=== PATIENT | female | born 1980 | race Caucasian/White ===

== ENCOUNTER 2016-11-20 11:01 | Emergency (ER) | payer MEDICAID ==
[~2016-11-20] VITALS: Wt 49.5 kg
[~2016-11-20 11:01] MED LIST: IBUP-1542 PO; MECL25TA2 PO
[2016-11-20] MEDS ORDERED: AZIT250T94 PO (13:49)
[2016-11-20] MEDS ORDERED: CETI10CA PO (13:49)
[2016-11-20] MEDS ORDERED: FLUT9.9S NASAL (13:49)
--- NOTE | 2016-11-20 13:55 | ERD ---
ER Documentation Chief Complaint Date/Time DATE: 11/20/16 TIME: 13:51 Chief Complaint COUGH AND CONGESTION FOR 2 WKS. SORE THROAT. NOT BETTER WITH MEDS HPI This is a 36-year-old female who presents to the emergency department today complaining of cough, congestion and sore throat for the past 2 weeks. Patient has tried Robitussin and promethazine that she got from her primary care doctor. States cough is worse at night and that is a dry cough. Denies any fevers or chills, chest pain or shortness of breath. ROS All systems reviewed and are negative except as per history of present illness. Medications Home Meds Active Scripts Azithromycin* (Zithromax*) 250 Mg Tablet, 250 MG PO .ZPACK DIRECTED, #6 TAB TAKE 500 MG (2 TABS) THE FIRST DAY THEN 250 MG (1 TAB) DAYS 2-5 Prov:JUANY HACKETT PA-C 11/20/16 Fluticasone Propionate (Flonase Allergy Relief) 9.9 Ml [place].susp, 2 SPRAY NASAL DAILY, #1 BOTTLE TO EACH NOSTRIL Prov:JUANY HACKETT PA-C 11/20/16 Cetirizine Hcl* (Zyrtec*) 10 Mg Capsule, 10 MG PO DAILY, #14 TAB.CHEW Prov:JUANY HACKETT PA-C 11/20/16 Ibuprofen* (Motrin*) 600 Mg Tab, 600 MG PO Q6H Y for PAIN AND OR ELEVATED TEMP, #30 TAB Prov:MARIA C SALES MD 10/17/15 Meclizine Hcl* (Antivert*) 25 Mg Tablet, 25 MG PO Q6H Y for dizziness, #20 TAB Prov:MARIA C SALES MD 10/17/15 Reported Medications [None] No Conflict Check 01/23/12 Allergies Allergies: Coded Allergies: No Known Drug Allergy (Verified Allergy, Unknown, 09/16/13) PMhx/Soc Medical and Surgical Hx: pt denies Medical Hx Anesthesia Reaction: No Hx Neurological Disorder: No Hx Respiratory Disorders: No Hx Cardiac Disorders: No Hx Psychiatric Problems: No Hx Miscellaneous Medical Probl: No Hx Alcohol Use: No Hx Substance Use: No Hx Tobacco Use: No Physical Exam Vitals Vital Signs Date Time Temp Pulse Resp B/P Pulse Ox O2 Delivery O2 Flow Rate FiO2 3/15/17 11:03 98.8 98 20 125/80 98 Physical Exam Const: No acute distress Head: Atraumatic Eyes: Normal Conjunctiva ENT: Ears TMs normal. Nose no drainage. Throat no erythema no exudate. Neck: Full range of motion..~ No meningismus. Resp: Clear to auscultation bilaterally. No absent breath sounds. No wheezing Cardio: Regular rate and rhythm, no murmurs Abd: Soft, non tender, non distended. Normal bowel sounds Skin: No petechiae or rashes Neur: Awake and alert Psych: Normal Mood and Affect Procedures/MDM This a 36-year-old female who presents the emergency department today with cough , congestion and sore throat for the past 2 weeks that has not improved with ryos-wpt-fuksdfa Robitussin and promethazine that she was prescribed from her primary care physician. Patient is afebrile here in the emergency department. Her respirations are 20 her oxygen saturation is 98%. She is not tachycardic. I do not feel the patient requires a chest x-ray at this time. I will give the patient a prescription for azithromycin to treat possible bronchitis. Low suspicion for PE, pneumonia, abscess, pneumothorax. Other differentials to consider are viral URI, allergic rhinitis I have low suspicion for strep pharyngitis, peritonsillar abscess, retropharyngeal abscess, otitis media, PNA, sinusitis, abscess, meningitis, sepsis, or other acute infectious bacterial process. Patient will also be given a prescription for Zyrtec and Flonase. She may continue taking either the promethazine or Robitussin as needed. At this time the patient is stable for discharge and outpatient management. They should follow up with their PCP in the next 1-2. They may return to the emergency department sooner if symptoms persist or worsen. Patient understood and agreed with the plan. Departure Diagnosis: Primary Impression: URI (upper respiratory infection) URI type: unspecified URI Qualified Code: J06.9 - Upper respiratory tract infection, unspecified type Condition: Fair Patient Instructions: Preventing Common Respiratory Infections Referrals: [facility] Usted se weathers hecho un examen mdico de control que le indica que no est en danisha condicin que requiera tratamiento urgente en el Departamento de Emergencia. Un estudio ms profundo y el tratamiento de zuniga condicin pueden esperar sin ningn riesgo hasta que usted sea atendida/o en el consultorio de zuniga mdico o danisha cl flo. Es responsabilidad suya arreglar danisha mary jo para el seguimiento del nnacy. MANEJO DE CONDICIONES NO URGENTES EN EL FUTURO 1) Si usted tiene un mdico de atencin primaria: Usted debera llamar a zuniga mdico de atencin primaria antes de venir al departamento de emergencia. Despus de las horas de consultorio, zuniga doctor o zuniga asociado/a est disponible por telfono. El mdico o enfermero de hattie en el servicio telefnico puede asesorarle por triston medio para atender el problema, o nancy contrario se puede programar danisha mary jo. 2) Si usted no tiene un mdico de atencin primaria: Llame al mdico o clnica de referencia que aparece abajo maine las horas de consultorio para hacer danisha mary jo para que le vean. CLINICAS: [place] [id number] [phone] [facility] [phone] [facility]. [facility] [phone] [address] [facility]. [place] [phone] [facility]. [place] [id number] [phone] [facility]. [phone] [address] Additional Instructions: Llame al doctor MAANA y keturah danisha MARY JO PARA DENTRO DE 1-2 NAVARRO.Dgale a la secretaria que nosotros le instruimos hacer esta mary jo.Avise o llame si zuniga condicin se empeora antes de la mary jo. Regresa aqui si peor o no mejor. Take all medications as prescribed Continue taking either the promethazine or tussin JUANY HACKETT PA-C Nov 20, 2016 13:55
== END 2016-11-20 13:57 | disposition home or self-care (01) ==
LOC: FTE 11:01
DX: J06.9 Acute upper respiratory infection, unspecified (principal)
CPT/HCPCS: 99283

== ENCOUNTER 2017-07-30 15:26 | Emergency (ER) | payer MEDICAID ==
[~2017-07-30] VITALS: Ht 162.6 cm; Wt 52.4 kg
[~2017-07-30 15:26] MED LIST changes: +AZIT250T94 PO; +CETI10CA PO; +FLUT9.9S NASAL
[2017-07-30 15:39] VITALS: Ht 162.6 cm; Wt 52.4 kg
[2017-07-30 16:40] LABS: URINE BLOOD (Dip) POC 2+ (NEGATIVE)
[2017-07-30] MEDS ORDERED: NITR-58 PO (16:54)
--- NOTE | 2017-07-30 17:20 | ERD ---
ER Documentation Chief Complaint Chief Complaint dysuria x 1 month HPI 37-year-old female complaining of dysuria 1 month. Patient denies vaginal discharge or new sexual partners. Patient states she was given Pyridium at her PMDs but no antibiotics. Patient describes a burning type sensation with occasional hematuria during urination. Back pain and no fevers. Denies medical problems. NKDA. Surgical history: 2 C-sections. Social history: Denies ROS All systems reviewed and are negative except as per history of present illness. Medications Home Meds Active Scripts Nitrofurantoin Monohyd Macrocr* (Macrobid*) 100 Mg Capsr, 100 MG PO BID for 14 Days, CAP Prov:CAROL JUAN PA-C 07/30/17 Azithromycin* (Zithromax*) 250 Mg Tablet, 250 MG PO .ZPACK DIRECTED, #6 TAB TAKE 500 MG (2 TABS) THE FIRST DAY THEN 250 MG (1 TAB) DAYS 2-5 Prov:JUANY HACKETT PA-C 11/20/16 Fluticasone Propionate (Flonase Allergy Relief) 9.9 Ml [place].susp, 2 SPRAY NASAL DAILY, #1 BOTTLE TO EACH NOSTRIL Prov:JUANY HACKETT PA-C 11/20/16 Cetirizine Hcl* (Zyrtec*) 10 Mg Capsule, 10 MG PO DAILY, #14 TAB.CHEW Prov:JUANY HACKETT PA-C 11/20/16 Ibuprofen* (Motrin*) 600 Mg Tab, 600 MG PO Q6H Y for PAIN AND OR ELEVATED TEMP, #30 TAB Prov:MARIA C SALES MD 10/17/15 Meclizine Hcl* (Antivert*) 25 Mg Tablet, 25 MG PO Q6H Y for dizziness, #20 TAB Prov:MARIA C SALES MD 10/17/15 Reported Medications [None] No Conflict Check 01/23/12 Allergies Allergies: Coded Allergies: No Known Drug Allergy (Verified Allergy, Unknown, 09/16/13) PMhx/Soc Anesthesia Reaction: No Hx Neurological Disorder: No Hx Respiratory Disorders: No Hx Cardiac Disorders: No Hx Psychiatric Problems: No Hx Miscellaneous Medical Probl: No Hx Alcohol Use: No Hx Substance Use: No Hx Tobacco Use: No Smoking Status: Never smoker Physical Exam Vitals Vital Signs Date Time Temp Pulse Resp B/P Pulse Ox O2 Delivery O2 Flow Rate FiO2 07/30/17 15:39 99.8 90 18 140/78 97 Physical Exam GENERAL: The patient is well-appearing, well-nourished, in no acute distress CHEST: Clear to auscultation bilaterally. There are no rales, wheezes or rhonchi. HEART: Regular rate and rhythm. No murmurs, clicks, rubs or gallops. No S3 or S4. ABDOMEN:Soft, nontender and nondistended. Good bowel sounds. No rebound or guarding. No gross peritonitis. No gross organomegaly or masses. No Aguila sign or McBurney point tenderness. BACK: No midline or flank tenderness. Results 24 hrs Laboratory Tests Test 07/30/17 16:39 Bedside Urine pH (LAB) 6.5 Bedside Urine Protein (LAB) Negative Bedside Urine Glucose (UA) Negative Bedside Urine Ketones (LAB) Negative Bedside Urine Blood 2+ Bedside Urine Nitrite (LAB) Negative Bedside Urine Leukocyte Esterase (L Trace Procedures/MDM ER course: Urine sent for culture MDM: 37-year-old female complaining of dysuria 1 month. Patient's urine shows possible infection and she has clinically complaints of UTI so I will treat for UTI. A low suspicion for pyelonephritis patient does not have CVA tenderness on exam. Vital signs are stable. Patient is not complaining of vaginal discharge or vaginitis so I have low suspicion for STD or yeast infection at this time. Patient's vital signs are stable patient is nontoxic-appearing. Patient is discharged with antibiotics and recommended to follow-up with primary care within 1-2 days for close evaluation. Patient is told symptoms change or worsen to return the ER. All questions answered at discharge. Departure Diagnosis: Primary Impression: Dysuria Condition: Stable Patient Instructions: Dysuria Referrals: [facility] YOU HAVE RECEIVED A MEDICAL SCREENING EXAM AND THE RESULTS INDICATE THAT YOU DO NOT HAVE A CONDITION THAT REQUIRES URGENT TREATMENT IN THE EMERGENCY DEPARTMENT. FURTHER EVALUATION AND TREATMENT OF YOUR CONDITION CAN WAIT UNTIL YOU ARE SEEN IN YOUR DOCTORS OFFICE WITHIN THE NEXT 1-2 DAYS. IT IS YOUR RESPONSIBILITY TO MAKE AN APPOINTMENT FOR FOLOW-UP CARE. IF YOU HAVE A PRIMARY DOCTOR --you should call your primary doctor and schedule an appointment IF YOU DO NOT HAVE A PRIMARY DOCTOR YOU CAN CALL OUR PHYSICIAN REFERRAL HOTLINE AT IF YOU CAN NOT AFFORD TO SEE A PHYSICIAN YOU CAN CHOSE FROM THE FOLLOWING [facility] [address] [facility] [address] [facility] [address] [facility] [address] [facility]. [facility] [address] [facility]. [facility]. [address] Additional Instructions: FOLLOW UP WITH YOUR PRIMARY CARE PHYSICIAN TOMORROW.Return to this facility if you are not improving as expected. CAROL JUAN PA-C Jul 30, 2017 17:20
== END 2017-07-30 17:10 | disposition home or self-care (01) ==
LOC: FTE 15:26
DX: R30.0 Dysuria (principal)
CPT/HCPCS: 81003; 87086; Z7502; 99283

== ENCOUNTER 2017-12-29 08:44 | Emergency (ER) | END 2017-12-29 12:05 | disposition home or self-care (01) ==

== ENCOUNTER 2018-05-12 08:33 | Emergency (ER) | END 2018-05-12 10:53 | disposition home or self-care (01) ==

== ENCOUNTER 2018-05-20 09:00 | Emergency (ER) | END 2018-05-20 15:09 | disposition home or self-care (01) ==

== ENCOUNTER 2018-11-08 07:32 | Emergency (ER) | payer MEDICAID ==
[~2018-11-08] VITALS: Wt 51.3 kg
[~2018-11-08 07:32] MED LIST changes: +AZIT250T PO; -AZIT250T94 PO; +CYCL10TA7 PO; +DOCU-144 PO; +FAMO-96 PO; +METO10TA92 PO; +NAPR-688 PO; +NITR-58 PO; +OMEP20CA16 PO; +POLY17PO6 PO
[2018-11-08 07:35] VITALS: BP 121/63; PULSE 99; RESP 17
[2018-11-08] MEDS ORDERED: PRED20TA PO (07:52)
--- NOTE | 2018-11-08 07:52 | ERD ---
ER Documentation Chief Complaint Chief Complaint BODYACHES, FEVER AT HOME, MILD COUGH, PHLEGM X 8 DAYS HPI 38-year-old female presents with 8 days of flulike symptoms including body aches, fever, mild cough, nasal congestion and ear pain worse on the left side. No nausea or vomiting. Has been taking tbhe-fmh-grvgbfs medications with little relief. She also states she has been coughing up green colored phlegm. ROS All systems reviewed and are negative except as per history of present illness. Medications Home Meds Active Scripts Metoclopramide* (Reglan*) 10 Mg Tablet, 10 MG PO Q6 PRN for NAUSEA AND/OR VOMITING, #20 TAB Prov:MARU KHAN PA-C 05/20/18 Docusate Sodium* (Colace*) 100 Mg Capsule, 100 MG PO TID, #30 CAP Prov:MARU KHAN PA-C 05/20/18 Omeprazole* (Omeprazole*) 20 Mg Capsule.dr, 20 MG PO DAILY, #14 Prov:MARU KHNA PA-C 05/20/18 Famotidine* (Pepcid*) 20 Mg Tablet, 20 MG PO QHS, #30 TAB Prov:MARU KHAN PA-C 05/20/18 Cyclobenzaprine Hcl* (Cyclobenzaprine Hcl*) 10 Mg Tablet, 10 MG PO TID, #20 TAB Prov:MARU KHANC 05/12/18 Polyethylene Glycol* (Miralax*) 17 Gm Powd.pack, 17 GM PO DAILY PRN for CON STIPATION, #7 Prov:MARU KHAN PA-C 05/12/18 Naproxen* (Naproxen*) 500 Mg Tablet, 500 MG PO BID, #30 TAB Prov:MARU KHAN PA-C 05/12/18 Nitrofurantoin Monohyd Macrocr* (Macrobid*) 100 Mg Capsr, 100 MG PO BID for 14 Days, CAP Prov:CAROL JUAN PA-C 07/30/17 Azithromycin* (Zithromax*) 250 Mg Tablet, 250 MG PO .MALGORZATA DIRECTED, #6 TAB TAKE 500 MG (2 TABS) THE FIRST DAY THEN 250 MG (1 TAB) DAYS 2-5 Prov:JUANY HACKETT PA-C 11/20/16 Fluticasone Propionate (Flonase Allergy Relief) 9.9 Ml [place].susp, 2 SPRAY NASAL DAILY, #1 BOTTLE TO EACH NOSTRIL Prov:JUANY HACKETT PA-C 11/20/16 Cetirizine Hcl* (Zyrtec*) 10 Mg Capsule, 10 MG PO DAILY, #14 TAB.CHEW Prov:JUANY HACKETT PA-C 11/20/16 Ibuprofen* (Motrin*) 600 Mg Tab, 600 MG PO Q6H PRN for PAIN AND OR ELEVATED TEMP, #30 TAB Prov:MARIA C SALES MD 10/17/15 Meclizine Hcl* (Antivert*) 25 Mg Tablet, 25 MG PO Q6H PRN for dizziness, #20 TAB Prov:MARIA C SALES MD 10/17/15 Reported Medications [None] No Conflict Check 01/23/12 Allergies Allergies: Coded Allergies: No Known Drug Allergy (Verified Allergy, Unknown, 05/12/18) PMhx/Soc History of Surgery: Yes (C SECTION X 2,tubal ligation) Anesthesia Reaction: No Hx Neurological Disorder: No Hx Respiratory Disorders: No Hx Cardiac Disorders: No Hx Psychiatric Problems: No Hx Miscellaneous Medical Probl: Yes (Anemia, stomach acidity,constipation) Hx Alcohol Use: No Hx Substance Use: No Hx Tobacco Use: No Physical Exam Vitals Vital Signs Date Temp Pulse Resp B/P (MAP) Pulse Ox O2 O2 Flow FiO2 Time Delivery Rate 11/08/18 99.1 99 17 121/63 99 07:35 (82) Physical Exam INITIAL VITAL SIGNS: Reviewed by me GENERAL: Awake, alert and oriented x 4, well appearing, nontoxic, speaking in full sentences. No acute distress HEAD: Atraumatic NECK: Supple. No masses. Full range of motion. No meningismus. No midline tenderness. EYES: EOMI. PERRL. EAR: No tenderness over the mastoids bilaterally. No exudates in the canals. TMs nonerythematous. NOSE: Normal nose. THROAT: No tonilar erythema or edema. No exudates. Uvula midline. No kissing tonsils. RESPIRATORY: Clear to auscultation bilaterally. Symmetric chest wall rise. No wheezing or rales. No accessory muscle use. CV: Regular rate and rhythm. No murmurs, rubs, or gallops. Procedures/MDM This patient is here for flulike symptoms. She is afebrile well-appearing. It is too late to give her Tamiflu as is already been about a week. She is discharged with a short course of prednisone. Patient counseled regarding my diagnostic impression and care plan. Prior to discharge all questions answered. Pt agrees with treatment plan and understands strict return precautions. Pt is instructed to follow up with primary care provider within 24-48 hours. Precautionary instructions provided including instructions to return to the ER if not improving or for any worsening or changing symptoms or concerns. Departure Diagnosis: Primary Impression: Flu-like symptoms Condition: Stable MICHAEL PERES PA-C Nov 08, 2018 07:51
== END 2018-11-08 08:35 | disposition home or self-care (01) ==
LOC: FTE 07:32
DX: R50.9 Fever, unspecified (principal); R05 Cough; R09.81 Nasal congestion; R52 Pain, unspecified
CPT/HCPCS: 99283